=== PATIENT | female | born 1990 | race Caucasian/White ===

== ENCOUNTER 2018-04-07 13:16 | Day surgery (SDC) | payer OTHER, SELFPAY ==
[2018-04-06 09:29] VITALS: BMI 23.2
[2018-04-07 14:23] VITALS: BMI 23.2
[2018-04-07 14:42] VITALS: BP 124/69; PULSE 64; RESP 16; TEMP 36.6; O2SAT 99
--- NOTE | 2018-04-07 15:02 | SUR.PREOP ---
Due to wrap, surgical site not washed with chlorhexidine.
--- NOTE | 2018-04-07 15:21 | PM.PREOP ---
Pre-operative Note Interval Note Pre-op Check: History & Physical Reviewed by Physician H&P completed within 30 days and has changed as indicated here:: No changes.
[2018-04-07] MEDS: LACTATED RINGERS 1,000 ML 42 ML IV (15:45)
--- NOTE | 2018-04-07 15:48 | P.OP_ITS ---
Operative Date/Time/Diagnoses - Date of procedure: 04/07/18 Pre-op diagnosis: Left fifth metatarsal fracture Procedure & Clinicians Procedure: Left fifth metatarsal open reduction internal fixation Indications: Fracture with displacement left fifth metatarsal. Surgeon: Pilar Nixon Anesthesia Type: General Operative Notes Closure Type: primary Specimen(s): none sent Implants & Drains: Aurora Baby Gorilla 6 hole straight plate, with six 2.0 and 2.5 mm screws Applied: implant(s) and other (posterior splint) Estimated Blood Loss (mL): 20 Blood products transfused: none Tourniquet time (min): 90 Procedure in detail: Patient was brought to the operating room and placed on the operative table in the supine position after induction of general anesthesia and the tourniquet was placed about the left hip in the foot and ankle were prepped and draped the usual aseptic manner. The tourniquet was inflated and after checking anesthesia incision was made over the dorsal lateral aspect of the 5th metatarsal. The incision was deepened through subcutaneous tissues being careful to identify and retract all vital neural and vascular structures, all bleeders were cauterized and ligated necessary. The fracture fragments were immediately seen and there was some hematoma that was able to be gently evacuated. The fragments were gently manipulated to go back out to length and under fluoroscopy and a lobster clamp, a lag screw was placed across the distal lateral part to proximal medial aspect. The plate was then chosen and temporary fixation used. The lag screw was able to close this down well, although it did not appear to fully engage the distal cortex. It did however leg well and was very sturdy. The smaller fragment distally was rotating and it was determined that a 2nd lag screw was needed here. Under standard AO techniques a lag screw was placed. Finally the plate was placed and this was well contoured and in appropriate position. This was checked on fluoroscopy and noted to be in good alignment. The area was irrigated copious amounts normal sterile saline and the tourniquet was deflated , prompt hyperemic response was seen to the foot. Deep closure was performed using 3 0 Vicryl subcutaneous with 4 O Vicryl and the skin with 3 0 nylon. Dressing was placed consisting of Adaptic 4x4s soft roll and a well padded appropriately aligned posterior splint. She was transferred to the PACU with vital signs stable. Following a period of postoperative monitoring the patient be discharged home on written and oral postoperative instructions including keeping the dressing dry and intact, avoiding ambulation to the foot, icing and elevating the foot when seated home , DVT prevention techniques have been reviewed. Complications: none Plan for aftercare: D/c to home with written and verbal instructions given. Preoperatively she is given rx for [place] 5/325mg tabs and Lovenox 40mg prefilled syringe (#10). She is given safety instructions. She will start her daily lovenox injection tomorrow. NWB and has her post op appt already made. She will be in splint today and will transition to a postop boot when swelling and incision allow. First x-ray generally at s/p four weeks, earlier if concerns prior.
[2018-04-07] MEDS: CEFAZOLIN 1 GM/50 ML FROZ.PIGGY IV (16:25)
--- NOTE | 2018-04-07 16:52 | SUR.OPER ---
Supine on padded OR bed, head on pillow, arms secured on padded arm boards at <90 degrees abduction, legs uncrossed, safety belt at waist, tape over blanket over lower right leg. Left leg drapped free
[2018-04-07] MEDS: BUPIVACAINE 0.5% (PF) 30 ML VIAL INJ (17:03)
[2018-04-07 19:03] VITALS: BP 109/66; PULSE 84; RESP 11; TEMP 37.2; O2SAT 95
[2018-04-07 19:08] VITALS: BP 120/60; PULSE 75; RESP 11; O2SAT 94
[2018-04-07 19:13] VITALS: BP 108/71; PULSE 78; RESP 14; TEMP 36.9; O2SAT 94
[2018-04-07 19:18] VITALS: BP 111/74; PULSE 75; RESP 14; TEMP 37.3; O2SAT 94
[2018-04-07] MEDS: OXYCODONE/ACETAMINOPHEN 5/325 TABLET 1 TAB PO (19:41)
[2018-04-07 19:58] VITALS: BP 105/69; PULSE 67; RESP 15; TEMP 37.1; O2SAT 97
--- NOTE | 2018-04-07 20:10 | SUR.PHASEII ---
PT DC TO HOME IN STABLE CONDITION, VSS. PT ABLE TO MOVE TOES OF OPERATIVE FOOT. OPERATIVE FOOT WARM TO TOUCH, +PULSE, AND +SENSTATION. DRSG TO SURGICAL SITE C/D/I AT TIME OF DC. PT DRESSED SELF WITHOUT ANY DIFFICULTLY. PT DENIES ANY NAUSEA AND TOLERATING ORAL INTAKE WITHOUT ANY DIFFICULTLY.
== END 2018-04-07 20:05 | disposition home or self-care (01) ==
PROVIDERS: Visit Provider Podiatrist
PROC: (CPT 28485; principal; 2018-04-07 14:45)
DX: S92.352A Displaced fracture of fifth metatarsal bone, left foot, initial encounter for closed fracture (principal); W10.1XXA Fall (on)(from) sidewalk curb, initial encounter
CPT/HCPCS: 28485; J1100; J2250; J2405; J2704; J3010

== ENCOUNTER → 2018-08-08 10:06 | Outpatient (CLI) | payer OTHER, SELFPAY | PROVIDERS: Visit Provider Physician Assistant | DX: B99.9 Unspecified infectious disease (principal) | CPT/HCPCS: 87070; 87075; 87077; 87147; 87186; 87205 ==

== ENCOUNTER → 2018-08-18 14:39 | Outpatient (CLI) | payer OTHER, SELFPAY ==
--- NOTE | 2018-08-18 | DI.RAD.S_ITS ---
PROCEDURE: XR SHOULDER RT MIN 2V INDICATIONS: RT SHOULDER AND TRAPEZIUS PAIN TECHNIQUE: 3 views of the shoulder were acquired. COMPARISON: None. FINDINGS: Bones: No fractures or dislocations. No suspicious bony lesions. Visualized ribs appear intact. Soft tissues: No suspicious soft tissue calcifications. IMPRESSION: No fracture. No osseous lesion. If symptoms and/or clinical suspicion for pathology persists, further assessment with repeat radiographs (7-10 days) or advanced imaging (e.g. CT, MRI or bone scan) may be helpful. Dictated by: Jessica Cowart MD, PhD on 08/18/2018 at 15:27 Approved by: Jessica Cowart MD, PhD on 08/18/2018 at 15:27
--- NOTE | 2018-08-18 | DI.RAD.S_ITS ---
PROCEDURE: XR CERVICAL SPINE 2V OR 3V INDICATIONS: RT SHOULDER AND TRAPEZIUS PAIN TECHNIQUE: 3 view(s) of the cervical spine were acquired. COMPARISON: None. FINDINGS: Bones: No fractures or dislocations to the T2 level. The lateral masses of C1 appear intact on the odontoid view. No suspicious bony lesions. There is slight reversal of normal cervical spine curvature. Soft tissues: No prevertebral soft tissue swelling. Intervertebral disc heights are normally preserved at all levels. IMPRESSION: No osseous lesion. If symptoms and/or clinical suspicion for pathology persists, evaluation with MRI may be helpful for further assessment. Dictated by: Jessica Cowart MD, PhD on 08/18/2018 at 15:25 Approved by: Jessica Cowart MD, PhD on 08/18/2018 at 15:27
== END ==
PROVIDERS: PCP Nurse Practitioner Family; Visit Provider Nurse Practitioner Family
DX: M25.511 Pain in right shoulder (principal)
CPT/HCPCS: 72040; 73030

== ENCOUNTER 2021-01-20 11:00 | Emergency (ER) | payer OTHER, SELFPAY ==
[2021-01-20 11:03] VITALS: BP 138/87; PULSE 82; RESP 16; TEMP 36.8; O2SAT 98; BMI 24.7
--- NOTE | 2021-01-20 11:14 | DI.RAD.S_ITS ---
PROCEDURE: XR CHEST 2V INDICATIONS: SOB, chest pain TECHNIQUE: 2 views of the chest were acquired. COMPARISON: None. FINDINGS: Surgical changes and devices: None. Lungs and pleura: Lungs are clear. No pleural effusions or pneumothorax. Mediastinum: Mediastinal contours are normal. Heart size is normal. Bones and chest wall: No suspicious bony abnormalities. Soft tissues appear unremarkable. IMPRESSION: No acute cardiopulmonary pathology. Dictated by: Mynor Wray M.D. on 01/20/2021 at 11:55 Approved by: Mynor Wray M.D. on 01/20/2021 at 11:55
[2021-01-20 11:37] LABS: Add Manual Diff / Slide Review NO; Basophils Absolute Auto 100 /uL (0-100); Eosinophils Absolute Auto 600 /uL (0-450); Eosinophils Percent Auto 5.9 % (2-4); Hematocrit 42.3 % (36-46); Hemoglobin 14.5 g/dL (12.0-16.0); Lymphocytes Absolute Auto 2300 /uL (1100-4500); Lymphocytes Percent Auto 24.9 % (25-40); Mean Corpuscular HGB Conc 34.2 % (30-36); Mean Corpuscular Hemoglobin 31.4 PG (26-34); Mean Corpuscular Volume 91.7 fL (80-100); Monocytes Absolute Auto 600 /uL (0-900); Monocytes Percent Auto 6.4 % (3-14); Neutrophils Absolute Auto 5800 /uL (1500-7000); Neutrophils Percent Auto 61.8 % (50-75); Platelet Count 225 X10^3/uL (150-400); Red Blood Cell Count 4.61 X10^6/uL (4.0-5.2); Red Cell Distribution Width 12.7 % (11.6-14.8); White Blood Cell Count 9.4 X10^3/uL (4.5-11.0)
[2021-01-20 11:44] LABS: Creatine Kinase 57 U/L (30-135)
[2021-01-20 11:48] LABS: BUN Creatinine Ratio 19.7 (6-22); Blood Urea Nitrogen 14 mg/dL (7-17); Calcium 9.5 mg/dL (8.4-10.2); Carbon Dioxide 30 mmol/L (22-32); Chloride 101 mmol/L (98-107); Estimated Glomerular Filt Rate > 60.0 mL/min (>60); Glucose 96 mg/dL (70-100); HEMOLYSIS 27 (0-50); Potassium 4.3 mmol/L (3.4-5.1); Sodium 136 mmol/L (137-145)
[2021-01-20 11:49] LABS: C-Reactive Protein Quant < 0.5 mg/dL (<1.0)
[2021-01-20 11:56] LABS: Troponin I < 0.012 ng/mL (0.01-0.034)
--- NOTE | 2021-01-20 12:06 | ED_ITS ---
HPI - Back Pain/Injury General Chief Complaint: Back Pain/Injury Stated Complaint: severe back and chest pain on left side Time Seen by Provider: 01/20/21 11:03 Source: patient Mode of arrival: Ambulatory Limitations: no limitations History of Present Illness HPI Narrative: 30F nonsmoker withotu significant medical history presents with a chief complaint of left upper back sharp and stabbing pain that is worse with a deep breath and motion. She states that it feels like it radiates around to the left front of her chest. She states she has had episodes off and for the past few years but it has never lasted quite this long. She denies any injury or overuse with her left arm. She denies any numbness, tingling or weakness. She denies any shortness of breath, recent travel or history of blood clot. Her pa in at most intense with 7/10 and is currently 2 or 3. She denies nausea, vomiting or diarrhea. MD Complaint: back pain Onset (ago): hour(s) Duration: improved Similar Symptoms Previously: Yes Location: thoracic spine Severity: moderate Quality: sharp Radiation: none Exacerbating factors: movement Associated symptoms: denies other symptoms Related Data Home Medications Medication Instructions Recorded Confirmed sertraline 50 mg PO DAILY 04/07/18 08/08/18 levonorgestrel INTRAUTERINE each 07/31/18 08/08/18 Previous Rx's Medication Instructions Recorded cyclobenzaprine 10 mg PO TID PRN #14 tab 01/20/21 ketorolac 10 mg PO Q6H PRN #14 tab 01/20/21 Allergies Allergy/AdvReac Type Severity Reaction Status Date / Time No Known Drug Allergies Allergy Verified 08/08/18 09:41 Review of Systems Constitutional Constitutional: Denies chills, Denies fatigue, Denies fever(s), Denies frequent falls, Denies lethargy and Denies weakness Eyes Eyes: Denies change in vision, Denies eye discharge, Denies irritation and Denies loss of vision ENT Ears, Nose, Mouth, and Throat: Denies change in voice, Denies dizziness, Denies neck pain, Denies sore throat and Denies throat swelling Cardiovascular Cardiovascular: Reports chest pain, Denies irregular heart rhythm, Denies lightheadedness, Denies palpitations, Denies dyspnea, Denies dyspnea on exertion and Denies orthopnea Respiratory Respiratory: Denies cough, Denies dyspnea, Denies dyspnea on exertion and Denies wheezing Gastrointestinal Gastrointestinal: Denies abdominal pain, Denies change in bowel habits, Denies diarrhea, Denies nausea and Denies vomiting Musculoskeletal Musculoskeletal: Reports back pain, Denies neck pain and Denies numbness Integumentary/Breasts Skin/Breast: Denies pruritus, Denies erythema, Denies rash and Denies wounds Neurologic Neurologic: Denies behavioral changes, Denies confusion, Denies dizziness, Denies frequent falls, Denies loss of vision, Denies numbness and Denies weakne ss Psychiatric Psychiatric: Denies anxiety, Denies behavioral changes, Denies confusion, Denies depression, Denies homicidal ideation and Denies suicidal ideation Endocrine Endocrine: Denies fatigue, Denies flushing and Denies palpitations Hematologic/Lymphatic Hematologic/Lymphatic: Denies easy bruising Allergic/Immunologic Allergic/Immunologic: Denies urticaria, Denies throat swelling and Denies wheezing Patient History Medical History Anxiety Social History household members: significant other Smoking Status: Never smoker Smoking Status: Never smoker alcohol intake frequency: holidays/special occasions only Exam Narrative Exam Narrative: GENERAL: [30] year old patient appears stated age. Well- nourished, well-developed patient, in mild distress. HEAD: Atraumatic. Normocephalic. EYES: Pupils equal round and reactive. Extraocular motions intact. No scleral icterus. No injection or drainage. ENT: Nose without bleeding, purulent drainage. Throat without erythema, ton sillar hypertrophy or exudate. Airway patent. NECK: Trachea midline. Non tender CARDIOVASCULAR: Regular rate and rhythm without murmurs, gallops, or rubs. RESPIRATORY: Clear to auscultation. Breath sounds equal bilaterally. No wheezes, rales, or rhonchi. GASTROINTESTINAL: Abdomen soft, non-tender, nondistended. EXTREMITIES: No edema or joint tenderness. BACK: Tender to palpation in left sided thoracic paraspinal musculature just inferior and medial to scapula. NEURO: AOx3. SKIN: No rash or erythema of visible areas Initial Vital Signs Initial Vital Signs: Vital Signs Temperature 98.2 F 01/20/21 11:03 Pulse Rate 82 01/20/21 11:03 Respiratory Rate 16 01/20/21 11:03 Blood Pressure 138/87 01/20/21 11:03 Pulse Oximetry 98 01/20/21 11:03 Course Orders Ordered: Discontinued Medications Sodium Chloride (Normal Saline 0.9%) 1,000 mls @ 1,000 mls/hr IV BOLUS ONE Stop: 01/20/21 12:12 Last Infusion: 01/20/21 14:09 Dose: 0 mls/hr Documented by: Admin: 01/20/21 13:31 Dose: 1,000 mls/hr Documented by: MALLORY Vital Signs Vital signs: Vital Signs - 8 hr 01/20/21 11:03 Temperature 98.2 F Pulse Rate 82 Respiratory Rate 16 Blood Pressure 138/87 Pulse Oximetry 98 MDM - Back Pain/Injury Lab Data Result diagrams: 01/20/21 11:19 01/20/21 11:19 Labs: Lab Results 01/20/21 01/20/21 01/20/21 Range/Units 11:19 11:19 11:19 WBC 9.4 (4.5-11.0) X10^3/uL RBC 4.61 (4.0-5.2) X10^6/uL Hgb 14.5 (12.0-16.0) g/dL Hct 42.3 (36-46) % MCV 91.7 (80-100) fL MCH 31.4 (26-34) PG MCHC 34.2 (30-36) % RDW 12.7 (11.6-14.8) % Plt Count 225 (150-400) X10^3/uL Neut % (Auto) 61.8 (50-75) % Lymph % (Auto) 24.9 L (25-40) % [place] % (Auto) 6.4 (3-14) % Eos % (Auto) 5.9 H (2-4) % Baso % (Auto) 1.0 (0-2) % Neut # (Auto) 5800 (7271-1542) /uL Lymph # (Auto) 2300 (5273-1462) /uL Hudson # (Auto) 600 (0-900) /uL Eos # (Auto) 600 H (0-450) /uL Baso # (Auto) 100 (0-100) /uL ESR 4 (0-20) MM/HR D-Dimer 433 H (<230) ng/mL Sodium 136 L (137-145) mmol/L Potassium 4.3 (3.4-5.1) mmol/L Chloride 101 (98-107) mmol/L Carbon Dioxide 30 (22-32) mmol/L BUN 14 (7-17) mg/dL Creatinine 0.71 (0.52-1.04) mg/dL Estimated GFR > 60.0 (>60) mL/min BUN/Creatinine Ratio 19.7 (6-22) Glucose 96 (70-100) mg/dL Calcium 9.5 (8.4-10.2) mg/dL Total Creatine Kinase (30-135) U/L CK-MB (CK-2) CK-MB (CK-2) Rel Index Troponin I (0.01-0.034) ng/mL C-Reactive Protein < 0.5 (<1.0) mg/dL 01/20/21 Range/Units 11:19 WBC (4.5-11.0) X10^3/uL RBC (4.0-5.2) X10^6/uL Hgb (12.0-16.0) g/dL Hct (36-46) % MCV (80-100) fL MCH (26-34) PG MCHC (30-36) % RDW (11.6-14.8) % Plt Count (150-400) X10^3/uL Neut % (Auto) (50-75) % Lymph % (Auto) (25-40) % Hudson % (Auto) (3-14) % Eos % (Auto) (2-4) % Baso % (Auto) (0-2) % Neut # (Auto) (3306-6455) /uL Lymph # (Auto) (5648-7304) /uL Hudson # (Auto) (0-900) /uL Eos # (Auto) (0-450) /uL Baso # (Auto) (0-100) /uL ESR (0-20) MM/HR D-Dimer (<230) ng/mL Sodium (137-145) mmol/L Potassium (3.4-5.1) mmol/L Chloride (98-107) mmol/L Carbon Dioxide (22-32) mmol/L BUN (7-17) mg/dL Creatinine (0.52-1.04) mg/dL Estimated GFR (>60) mL/min BUN/Creatinine Ratio (6-22) Glucose (70-100) mg/dL Calcium (8.4-10.2) mg/dL Total Creatine Kinase 57 (30-135) U/L CK-MB (CK-2) TNP CK-MB (CK-2) Rel Index TNP Troponin I < 0.012 (0.01-0.034) ng/mL C-Reactive Protein (<1.0) mg/dL Point of Care Testing Test Results Negative Urine Dip Bedside Urine Glucose Negative Bedside Urine Bilirubin - Negative Bedside Urine Ketone - Negative Urine Specific [place] 1.020 Bedside Urine Occult Blood - Negative Bedside Urine pH 7.0 Bedside Urine Protein - Negative Bedside Urine Urobilinogen - Negative Bedside Urine Nitrite - Negative Bedside Urine Leukocytes - Negative Esterase Imaging Data Chest x-ray: Radiologist's Impression: [address] [id number] ReportSigned Patient: Jacki Subramanian MMR#: [id number]: [id number]:[id number]/Sex: 30 / FDate of Service: 01/20/21Loc: EDAccession Number: [id number] Procedure: XR chest 2V Ordering Provider: Ion Quiñones D.O. PROCEDURE: XR CHEST 2V INDICATIONS: SOB, chest pain TECHNIQUE: 2 views of the chest were acquired. COMPARISON: None. FINDINGS: Surgical changes and devices: None. Lungs and pleura: Lungs are clear. No pleural effusions or pneumothorax. Mediastinum: Mediastinal contours are normal. Heart size is normal. Bones and chest wall: No suspicious bony abnormalities. Soft tissues appear unremarkable. IMPRESSION: No acute cardiopulmonary pathology. Dictated by: Mynor Wray M.D. on 01/20/2021 at 11:55 Approved by: Mynor Wray M.D. on 01/20/2021 at 11:55 Discharge Plan Departure Patient Disposition: Home Clinical Impression: Atypical chest pain Acute thoracic myofascial strain Qualifiers: Encounter type: initial encounter Qualified Code(s): S29.019A - Strain of muscle and tendon of unspecified wall of thorax, initial encounter Instructions: DI for Atypical Chest Pain, DI for Muscle Strain Activity Restrictions/Additional Instructions: *You have been diagnosed with [atypical chest pain / thoracic strain. NO evidence of heart attack or blood clot ] *What to do: *Take medications as directed: Prescription sent to [facility] *Follow up with your primary care provider in 2-3 days, call for an appointment. Let them know you were seen in the Emergency Department and that we ask that you be seen in follow up *Return to ER if you should have any new, worsening or concerning symptoms Prescriptions: New cyclobenzaprine 10 mg tablet 10 mg PO TID PRN (Reason: muscle spasm) Qty: 14 RF: 0 ketorolac 10 mg tablet 10 mg PO Q6H PRN (Reason: pain) Qty: 14 RF: 0 No Action levonorgestrel [Kyleena] 17.5 mcg/24 hr (5 years) intrauterine device Intrauterine RF: 0 sertraline 50 mg PO DAILY RF: 0 Referrals: Elisha Abel ARNP [Primary Care Provider] -
[2021-01-20 12:31] LABS: D Dimer 433 ng/mL (<230)
[2021-01-20 12:36] VITALS: BP 127/88; PULSE 69; O2SAT 100
[2021-01-20 12:37] VITALS: BP 127/88; PULSE 61; RESP 18; O2SAT 99
[2021-01-20 13:00] VITALS: BP 127/78; PULSE 71; O2SAT 100
[2021-01-20 13:03] LABS: Erythrocyte Sedimentation Rate 4 MM/HR (0-20)
--- NOTE | 2021-01-20 13:22 | DI.CT.S_ITS ---
PROCEDURE: CT ANGIO CHEST PE PROTOCOL INDICATIONS: chest pain, elevated Dimer TECHNIQUE: After the administration of intravenous contrast, 2 mm thick sections acquired from the pulmonary apices to the posterior costophrenic angles. 3-dimensional maximum intensity projection (MIP) coronal and sagittal reformats were then acquired through the thorax. For radiation dose reduction, the following was used: automated exposure control, adjustment of mA and/or kV according to patient size. COMPARISON: None. FINDINGS: Image quality: Excellent. Pulmonary arteries: Pulmonary arteries are normal in size, and demonstrate no intraluminal filling defects to suggest central pulmonary embolism. Lungs and pleura: Lungs are clear. No pleural effusions or pneumothorax. Central and peripheral airways are patent. Mediastinum: Heart size is normal, without pericardial effusion. No mediastinal or hilar adenopathy. Thoracic aorta is normal in caliber and enhancement. Esophagus is normal in caliber, without hiatal hernia. Bones and chest wall: No suspicious bony lesions. Ribs and thoracic spine appear intact throughout. Thyroid gland is normal. No axillary or supraclavicular adenopathy. Abdomen: Visualized upper abdominal solid organs appear normal in the early arterial phase of enhancement. There is a small hiatal hernia. IMPRESSION: 1. No pulmonary embolism. 2. No acute abnormality of the chest. 3. Small hiatal hernia. Dictated by: Vikash Saldana M.D. on 01/20/2021 at 13:32 Approved by: Vikash Saldana M.D. on 01/20/2021 at 13:35
[2021-01-20 13:30] VITALS: BP 136/83; O2SAT 99
[2021-01-20] MEDS: SODIUM CHLORIDE 0.9% 1,000 ML 1000 ML IV (13:31)
[2021-01-20 14:10] VITALS: BP 133/74; PULSE 80; RESP 16; O2SAT 97
== END 2021-01-20 14:09 | disposition home or self-care (01) ==
PROVIDERS: Emergency Provider Emergency Medicine; PCP Internal Medicine
DX: R07.89 Other chest pain (principal); S29.019A Strain of muscle and tendon of unspecified wall of thorax, initial encounter
CPT/HCPCS: 71046; 71275; 80048; 81003; 81025; 82550; 84484; 85025; 85379; 85651; 86140; 93005; 96360; 99284

== ENCOUNTER → 2024-06-13 11:20 | Outpatient (CLI) | payer OTHER, SELFPAY ==
--- NOTE | 2024-06-13 11:22 | DI.US.S_ITS ---
PROCEDURE: US OB LIMITED INDICATIONS: GROWTH OUTSIDE/PRIOR DATING DATA: Last menstrual period (LMP): 10/20/2023. LMP-based estimated date of delivery (FRANCI): 07/26/2024. First dating scan (date and location): Not. Estimated date of delivery (FRANCI) from first dating scan: Not applicable. The calculations are made using the working FRANCI of 07/26/2024. TECHNIQUE: Real-time scanning was performed of the fetus, with image documentation. Endovaginal scanning: No COMPARISON: None. FINDINGS: A single living intrauterine gestation is present. Presentation: Hemanth breech. Placenta: Placental position is left, without previa. Amniotic fluid index: 10.5 cm, normal range is 5-24 cm. Single deepest vertical pocket is 5.3 cm. heart rate: 136 beats per minute. Maternal cervical canal: Not well seen BPD: 8.2 cm, 33 week 1 day. HC: 31.7 cm, 35 week 4 day AC: 31.0 cm, 35 week 0 day FL: 16.5 cm, 33 week 3 day EGA by current ultrasound: 34 week 2 day EGA by dates: 33 week 6 day EFW: 2422 g, 60 percentile All anatomy is visualized and within normal limits. IMPRESSION: Single live intrauterine consistent with 34 week 2 day gestation. Normal anatomic survey Approved by: Akhil Steele M.D. on 06/13/2024 at 18:22
== END ==
PROVIDERS: Referring Provider Obstetrics & Gynecology; Visit Provider Obstetrics & Gynecology
DX: O24.419 Gestational diabetes mellitus in pregnancy, unspecified control (principal); Z3A.34 34 weeks gestation of pregnancy
CPT/HCPCS: 76815

== ENCOUNTER → 2024-06-30 08:09 | Outpatient (CLI) | payer OTHER, SELFPAY ==
--- NOTE | 2024-06-30 08:54 | DIAB.GDA ---
Initial Gestational Diabetes Assessment Name: Jacki Subramanian Date: 06/30/24 Time: 991-977d Dx: Gestational Diabetes Provider: Saad FRANCI: 07/26/24 Weeks: 36 Jacki presents for initial GDM visit. Endorses maternal FH of T2Dm. Has questions today about nutrition, food safety during , how GDM can impact mom/baby, and risk of T2DM . States she was counting every carb, even in non starch veggies. [place]. Diet Recall: 830-10a: eggs, veggies 1-2 slices ww bread OR fast food egg sandwich with extra protein 12-1p: yogurt, nuts, honey, fruit, and pro shake 4p: nuts or yogurt or pro shake 630-8p: salad with fruit OR fajitas with low CHO wrap OR pizza and salad 9p: half ice cream bar Anthropometrics: Ht: 66 Wt: 184# 06/13/24 OB visit Prepregnancy wt: 150# Physical Activity: No program. More movement lately with moving into home. Self-Monitoring Blood Glucose: Jacki is checking FBG and 1 hour. All FBG buy one in goal this week since starting NPH. Most postprandial <140 mg/dl with exception of 2 elevations. Did have one low this morning of 67 mg/dl. No symptoms. If FBG continue to be under 70 mg/dl, may consider reducing to 8u NPH. Date Pre Post Pre Post Pre Post HS 06/24 87 139 164 8/11 91 123 128 140 8/12 95 119 121 138 8/13 89 95 120 126 8/14 102 122 151 129 8/15 87 112 2 hr 06/30 67 Diabetes Medications: 10u NPH Pertinent Labs: Late transfer of care. No labs available. Nutrition Rx: Carbohydrates: Meal: 45-g lunch and dinner; 30g breakfast Snack: 15-30g Nutrition Diagnosis: Altered nutrition related lab value r/t GDM dx aeb recent referral and pt report Nutrition and food related knowledge deficit r/t new diagnosis GDM aeb pt report, recent BG readings Intervention: This participant was very receptive. Provided appropriate educational handouts. Discussed the following topics: GDM pathophysiology and impact of hyperglycemia on mom and baby Risk for T2DM for mom and baby in the future Ways to reduce risk T2DM Plate Method, meal timing, carb counting, pairing macronutrients and spreading out CHO for better BG management Blood glucose goals (FBG: <95 and 1 hour <140 mg/dL or 2 hour <120mg/dl); importance of checking 4x per day (FBG and pc) Impact of macronutrients on blood glucose Food safety during Recommended servings for carbohydrates at meals and snacks CGM sample Reviewed CGM use and equipment Discussed when to check blood sugars using finger stick Reviewed high and low blood sugar signs/symptoms and treatment options Provided education for self-administration of CGM placement Educated patient on alarm settings Discussed when to replace equipment and disposal Role of physical activity and following provider guidelines for safety Goals: Aim for nutrition rx at meals/snacks If FBG continue under 70mg/dl, reduce NPH to 8u Wear CGM sample and corn picker CGM rx Follow-up: ADDIE MADISON follow-up in one week Nisha Hess RDN, [place] Certified Diabetes Care and Aircraft Instrument Engineer T: [phone] F: [phone] [email or web address] Thank you for this referral
== END ==
PROVIDERS: Referring Provider Obstetrics & Gynecology
DX: O24.414 Gestational diabetes mellitus in pregnancy, insulin controlled (principal); Z3A.36 36 weeks gestation of pregnancy; Z71.3 Dietary counseling and surveillance
CPT/HCPCS: 97802

== ENCOUNTER → 2024-06-30 09:24 | Outpatient (CLI) | payer OTHER, SELFPAY ==
[2024-07-01 13:39] LABS: Strep Grp B PCR NEG for Grp B Strep
== END ==
PROVIDERS: Referring Provider Obstetrics & Gynecology; Visit Provider Obstetrics & Gynecology
DX: Z34.83 Encounter for supervision of other normal pregnancy, third trimester (principal); Z3A.36 36 weeks gestation of pregnancy
CPT/HCPCS: 87653

== ENCOUNTER 2024-06-30 12:25 | Observation (INO) | payer OTHER, SELFPAY | END 2024-06-30 13:12 | disposition home or self-care (01) | PROVIDERS: Admitting Provider Obstetrics & Gynecology; Referring Provider Obstetrics & Gynecology; Visit Provider Obstetrics & Gynecology | DX: O47.03 False labor before 37 completed weeks of gestation, third trimester (principal); Z3A.36 36 weeks gestation of pregnancy | CPT/HCPCS: 87653; 97802; G0378; G0379 ==

== ENCOUNTER 2024-07-03 09:16 | Observation (INO) | payer OTHER, SELFPAY | END 2024-07-03 09:58 | disposition home or self-care (01) | PROVIDERS: Admitting Provider Obstetrics & Gynecology; Referring Provider Obstetrics & Gynecology; Visit Provider Obstetrics & Gynecology | DX: O24.414 Gestational diabetes mellitus in pregnancy, insulin controlled (principal); O47.03 False labor before 37 completed weeks of gestation, third trimester; Z3A.36 36 weeks gestation of pregnancy | CPT/HCPCS: 59025; G0378; G0379 ==

== ENCOUNTER → 2024-07-07 09:12 | Outpatient (CLI) | payer OTHER, SELFPAY ==
--- NOTE | 2024-07-07 09:16 | DIAB.GDFU ---
Follow-up Gestational Diabetes Assessment Name: Jacki Subramanian Date: 07/07/24 Time: 915-10a Dx: Gestational Diabetes Provider: Saad FRANCI: 07/26/24 Weeks: 37 Jacki presents for GDM visit. Some issues with sensor placement and coming off. Encouraged her to call Dexcom for replacement prn. Reports reduced veggie intake and increased eating out since moving and not having kitchen equipment. Also preference to eat out. Now that she has her kitchen equipment, anticipates eating at home more often. Has been recording food intake in CGM caridad. We reviewed this today. Often pairing CHO and pro. Some meals/snacks high in CHO, ie fruit with crackers and cheese OR sandwich with latte with honey. Also endorses some stress recently with moving. Noticed slight increase in FBG over last few days. She is unclear on how to titrated insulin when needed. Noticed when going long periods of time without eating, will then eat large portions and results in elevated readings. Plans to breastfeed. Notes mother's experience of difficulty with adequate milk supply. Reports baby percentile reduced from 80th percentile to 60th. Per US notes, normal AFV. Anthropometrics: Ht: 66 Wt: 184# 06/13/24 OB visit Prepregnancy wt: 150# Physical Activity: No program. More movement lately with moving into home. Self-Monitoring Blood Glucose: Wearing CGm. Received personal CGM. TIR adequate, though often having highs of 140-160mg/dl after 1-3 meals each day. FBG often <95mg/dl with occasional elevations lately r/t reported stress. States most mornings waking <95 mg/dl and CGM consistent with this. TIR: 0% very high 9% >140mg/dl 90% in range 1% low 0% very low av mg/dl std dev: 22 mg/dl GMI: 5.8% variability: 20.4% Diabetes Medications: 10u NPH Pertinent Labs: Late transfer of care. No labs available. Nutrition Rx: Carbohydrates: Meal: 45-g lunch and dinner; 30g breakfast Snack: 15-30g Nutrition Diagnosis: Altered nutrition related lab value r/t GDM dx aeb recent referral and pt report Nutrition and food related knowledge deficit r/t new diagnosis GDM aeb pt report, recent BG readings Excessive CHO intake r/t eating out occurrences and waiting long periods to eat resulting in excessive hunger aeb pt report, CGM reports, and food journal- new Intervention: This participant was very receptive. Provided appropriate educational handouts. Discussed the following topics: Carb portions and pairing postprandial elevations and strategies to reduce Troubleshooting CGM placement issues Medication management: increase NPH if 2 days in a row >95mg/dl by 1-2u Role of physical activity postprandial Recent blood sugar results and impact of food and hormones Review of macronutrient recommendations during Benefits, resources, and nutrition for recommendations for nutrition and physical activity recommendations for T2DM risk reduction OGTT at 6-12 weeks Checking blood sugars twice per week (goal: fasting <100 mg/dL and 2 hour pc <140 mg/dL) until 6 week check-up HgA1c q 1-3 years. Goals: Aim for nutrition rx at meals/snacks- in progress If FBG continue under 70mg/dl, reduce NPH to 8u- d/c Wear CGM sample and case picker CGM rx - met Start cooking at home - new Increase veggie intake- new Eat q 3-4 hours to reduce excessive hunger- new Call Dexcom about sensor - new Follow-up: ADDIE MADISON follow-up prn. Encouraged her to continue f/u with OB provider. If postprandial readings continue to be elevated, may need medication intervention. Anticipate with diet changes those numbers will come down in range. Encouraged her to call or message DIANNE/LOS prn for questions or follow-up needs. She agreed. Nisha Hess RDN, LOS Certified Diabetes Care and Bilingual Patient Support Caseworker T: [phone] F: [phone] [email or web address] Thank you for this referral
== END ==
LOC: DIET 09:13
PROVIDERS: Referring Provider Obstetrics & Gynecology
DX: O24.414 Gestational diabetes mellitus in pregnancy, insulin controlled (principal); Z3A.37 37 weeks gestation of pregnancy; Z71.3 Dietary counseling and surveillance
CPT/HCPCS: 97803

== ENCOUNTER 2024-07-07 12:09 | Outpatient (CLI) | payer OTHER, SELFPAY | END 2024-07-07 12:56 | disposition home or self-care (01) | LOC: LABOR 12:12 → OB 07-11 06:16 | PROVIDERS: Referring Provider Obstetrics & Gynecology; Visit Provider Obstetrics & Gynecology | DX: O36.8130 Decreased fetal movements, third trimester, not applicable or unspecified (principal); Z3A.37 37 weeks gestation of pregnancy | CPT/HCPCS: 59025; 97803; G0378; G0379 ==

== ENCOUNTER 2024-07-10 05:53 | Observation (INO) | payer OTHER, SELFPAY ==
[2024-07-10 06:51] LABS: Hematocrit 35.6 % (36-46)
--- NOTE | 2024-07-10 07:00 | PM.OBHP.1 ---
OB HPI Date/Time Date of admission: 07/10/24 Date Patient Seen: 07/10/24 Time Patient Seen: 06:40 History of Present Condition Chief complaint: inversion ECV : 1 Estimated Gestational Age (weeks): 37w5d Narrative: Jacki Subramanian is a 34 year old female G1 at 37w5d by early OSH US who presents to L&D for scheduled external cephalic version. course has been complicated by late transfer of care, A2GDM currently well managed on 10u NPH QHS, most recent growth scan at 34wga with EFW 60th%. At time of last office encounter (07/07) persistent malpresentation noted transverse/oblique with head to maternal R and BLE extended in pike position. Pt states she feels like there was some kind of large movement over the weekend while she was doing 'spinning babies' stretches but still feels like baby isn't quite in the right place. Indications Other reason(s) for admission: External cephalic version History of Present care: good care Ultrasounds: normal 1st trimester US Preadmission Labs Blood type: O (+) positive -: Antibody screen: negative, Cystic fibrosis screen: unknown, GBS status: negative, HBsAG: negative, HIV: negative and RPR/VDLR: negative -: Chlamydia screen: not detected and Gonorrhea screen: not detected HCT: 35.6 HCAB: negative PAP: Normal Integrated screen: low risk Quad screen: Normal 1 hr GTT: 164 3 hr GTT: 1 hr (205), 2 hr (177) and 3 hr (65) Fasting blood glucose: 95 Evaluation Evaluation Baseline heart rate: 155 Variability: Moderate (11-25) monitor accelerations: Present Monitor Decelerations: Absent Comments: bedside transabdominal US: han breech, head in maternal LUQ noted L lateral placenta with some calcifications MVP 5cm [facility] Medical History (Updated 06/30/24 @ 13:25 by Magalie Nash MD) Maternal excessive weight gain Insulin controlled gestational diabetes mellitus during Thyroid dysfunction Anxiety Surgical History (Updated 06/12/24 @ 08:14 by Cristel Casillas, SUZAN) [place] teeth extracted History of foot surgery (~2018) Family History (Updated 06/12/24 @ 08:17 by Cristel Casillas, SUZAN) Mother Hypothyroidism Pre-diabetes Grandmother Diabetes mellitus Father Spinal stenosis Recovering alcoholic Grandfather Heart disease Sister Gilbert's disease Brother Bipolar disorder Social History marital status: number of children: 0 household members: significant other lives independently: Yes caregiver/support person: No housing: house pets and animals: Yes (cats; aware of precautions) education level: college (bachelor's degree) occupational status: employed (works from home) current occupational exposures/hazards: No kareem/orthodox: [employer] special kareem needs: No travel history: recent (domestic only) seatbelt use: always helmet use: Yes (mixed; not with bicycle; counseled on this) water heater temp set < 120 deg: Yes working smoke detector in home: Yes fire extinguisher in home: Yes carbon monox detector in home: Yes firearms in home: No do you feel safe at home: Yes Smoking Status: Never smoker second hand exposure: No alcohol intake: former (~1-3 drinks on weekends when not ) substance use type: marijuana (edibles; not while /) during the past year weight has: remained stable (prior to ) well-balanced diet: daily or most days daily servings fruits/ve or more times/day caffeine: Yes (occasional decaf coffee; mostly stopped w/ ) Type(s) of exercise: walking Meds Home Medications and Allergies Home Medications Medication Instructions Recorded Confirmed Type calcium carbonate (Tums) 200 mg PO TID PRN 06/12/24 07/07/24 History famotidine 20 mg tablet 20 mg PO DAILY 06/12/24 07/07/24 History polyethylene glycol 3350 17 gram 17 g PO DAILY PRN 06/12/24 07/07/24 History oral powder packet (Miralax) vitamin-ferrous sulfate tab PO 06/12/24 07/07/24 History 27 mg iron-folic acid 0.8 mg tablet insulin NPH isoph U-100 human 100 10 unit (0.1 mL) SUBCUT QPM #15 mL 06/16/24 07/07/24 Rx unit/mL (3 mL) subcutaneous pen (Humulin N NPH U-100 Insulin KwikPen) pen needle, diabetic 31 gauge x #100 ea 06/21/24 07/07/24 Rx 1/4 (Comfort EZ Pen [place]) blood-glucose sensor (Dexcom G7 #3 ea 06/30/24 07/07/24 Rx Sensor device) Allergies Allergy/AdvReac Type Severity Reaction Status Date / Time No Known Drug Allergies Allergy Verified 07/07/24 11:21 Review of Systems Review of Systems ROS: Yes All systems reviewed with the patient and are negative except as otherwise documented OB Exam Vital signs Blood Pressure: 108/73 Pulse Rate: 73 Respiratory Rate: 17 Temperature: 98.6 F HENMT Head: normal to inspection Eyes General: appearance normal, both eyes and all related structures Resp Effort & Inspection: normal respiratory effort Cardio Rate: regular rate Extremities Lower extremity: Yes normal to inspection and edema (+1) Laterality: bilateral GI Inspection: normal to inspection Other: gravid, ga breech head to maternal LUQ Other: deferred Objective Labs 07/10/24 06:36 Labs: Laboratory Results - last 24 hr 07/10/24 06:36 Hgb 12.0 Hct 35.6 L Assessment and Plan Assessment and Plan Assessment and Plan narrative: 34yo G1 at 37w5d by early OSH dating presents for scheduled external cephalic version in setting of persistent malpresentation at term ECV Patient counseled regarding risks, benefits and alternatives to procedure. We specifically reviewed potential for intolerance to procedure wherein immediate urgent section would be indicated for delivery. We also reviewed potential placental injury, iatrogenic labor, PROM as well as persistent malpresentation. Patient and partner verbalize understanding and desire to proceed with trial of ECV to prevent the primary section. T&S, h/h on admission, IV access obtained Cat 1 tracing, maternal VSS/afebrile 0.25mg terbutaline SQ, hold for MD at bedside Patient is consented for external cephalic version, section in congregation of intolerance to procedure, transfusion of blood products as medically indicated dispo: pending clinical course Time-Based Coding :: [20] spent with patient and on the chart (including review of chart, obtaining history, exam, reviewing outside data, placing orders, documenting exam and treatment plan, and counseling patient) on [07/10/24].
[2024-07-10 07:20] VITALS: BP 108/73; PULSE 73; RESP 17; TEMP 37
[2024-07-10] MEDS: TERBUTALINE 1 MG/ML VIAL 0.25 MG SUBCUT (07:29)
[2024-07-10] MEDS: MINERAL OIL 30 ML UDC TOP (07:30)
== END 2024-07-10 09:56 | disposition home or self-care (01) ==
PROVIDERS: Admitting Provider Obstetrics & Gynecology; Referring Provider Obstetrics & Gynecology; Visit Provider Obstetrics & Gynecology
DX: O32.9XX1 Maternal care for malpresentation of fetus, unspecified, fetus 1 (principal); Z3A.37 37 weeks gestation of pregnancy
CPT/HCPCS: 36415; 59025; 59050; 59412; 76815; 85014; 85018; 86850; 86900; 86901; 96372; G0378; A9270; G0379

== ENCOUNTER 2024-07-14 09:10 | Outpatient (CLI) | payer OTHER, SELFPAY | END 2024-07-14 10:02 | disposition home or self-care (01) | LOC: LABOR 09:30 → OB 07-18 07:24 | PROVIDERS: Referring Provider Obstetrics & Gynecology; Visit Provider Obstetrics & Gynecology | DX: O24.414 Gestational diabetes mellitus in pregnancy, insulin controlled (principal); Z3A.38 38 weeks gestation of pregnancy | CPT/HCPCS: 59025; G0378; G0379 ==

== ENCOUNTER 2024-07-17 09:05 | Outpatient (CLI) | payer OTHER, SELFPAY | END 2024-07-17 10:00 | disposition home or self-care (01) | LOC: LABOR 09:07 → OB 07-24 06:33 | PROVIDERS: Referring Provider Obstetrics & Gynecology; Visit Provider Obstetrics & Gynecology | DX: O24.414 Gestational diabetes mellitus in pregnancy, insulin controlled (principal); Z3A.38 38 weeks gestation of pregnancy | CPT/HCPCS: 59025; G0378; G0379 ==

== ENCOUNTER 2024-07-19 10:33 | Inpatient (IN) | payer OTHER, SELFPAY ==
[2024-07-19 11:25] LABS: Add Manual Diff / Slide Review NO; Basophils Absolute Auto 100 /uL (0-100); Basophils Percent Auto 0.9 % (0-2); Eosinophils Absolute Auto 100 /uL (0-450); Eosinophils Percent Auto 1.1 % (2-4); Hematocrit 35.3 % (36-46); Lymphocytes Absolute Auto 1800 /uL (1100-4500); Lymphocytes Percent Auto 17.6 % (25-40); Mean Corpuscular Hemoglobin 29.5 PG (26-34); Monocytes Absolute Auto 900 /uL (0-900); Monocytes Percent Auto 8.4 % (3-14); Neutrophils Absolute Auto 7500 /uL (1500-7000); Platelet Count 180 X10^3/uL (150-400); Red Blood Cell Count 4.06 X10^6/uL (4.0-5.2); Red Cell Distribution Width 13.7 % (11.6-14.8); White Blood Cell Count 10.4 X10^3/uL (4.5-11.0)
--- NOTE | 2024-07-19 11:25 | PM.OBHP.1 ---
OB HPI Date/Time Date of admission: 07/19/24 Date Patient Seen: 07/19/24 Time Patient Seen: 11:25 History of Present Condition Chief complaint: malpresentation (breech), primary CS : 1 Estimated Date of Delivery: 07/26/24 Estimated Gestational Age (weeks): 39w0d Narrative: Jacki Subramanian is a 34 year old female G1 at 39w0d d=9wk OSH US who presents for scheduled primary section in setting of persistent malpresentation (han breech) s/p unsuccessful ECV. Patient presents today accompanied by her spouse, Song. course c/b A2GDM (10u NPH QHS) with excellent glycemic control, late transfer of care at 34wga to [facility] secondary to move. +FM, denies VB, LOF, dysuria, ctx. Indications Operative indications ( section): breech presentation History of Present care: good care Dating criteria: LMP confirmed by 1st trimester US Ultrasounds: normal 1st trimester US and normal mid trimester US Obstetrical complications: gestational diabetes (A2, 10u NPH QHS ) Medical complications: none Preadmission Labs Blood type: O (+) positive -: Antibody screen: negative, Cystic fibrosis screen: unknown, GBS status: negative, HBsAG: negative, HIV: negative, HSV 1: unknown, HSV 2: unknown and RPR/VDLR: negative -: Chlamydia screen: not detected and Gonorrhea screen: not detected -: Rubella: immune HCT: 35.3 HCAB: negative PAP: Normal Sequential screen: wnl Quad screen: Normal Urine: neg 1 hr GTT: 164 3 hr GTT: 1 hr (205), 2 hr (177) and 3 hr (65) Fasting blood glucose: 96 Evaluation Evaluation Baseline heart rate: 135 Variability: Moderate (11-25) monitor accelerations: Present Monitor Decelerations: Absent Category of Tracing: Reactive Status: Category l PFSH Medical History (Updated 07/20/24 @ 09:54 by Allyson Fleming DO) Maternal excessive weight gain Insulin controlled gestational diabetes mellitus during Thyroid dysfunction Anxiety Surgical History (Updated 06/12/24 @ 08:14 by Cristel Casillas, SUZAN) [place] teeth extracted History of foot surgery (~2018) Family History (Updated 07/29/24 @ 08:17 by Cristel Casillas RN) Mother Hypothyroidism Pre-diabetes Grandmother Diabetes mellitus Father Spinal stenosis Recovering alcoholic Grandfather Heart disease Sister Gilbert's disease Brother Bipolar disorder Social History marital status: number of children: 0 household members: significant other lives independently: Yes caregiver/support person: No housing: house pets and animals: Yes (cats; aware of precautions) education level: college (bachelor's degree) occupational status: employed (works from home) current occupational exposures/hazards: No kareem/advent: [employer] special kareem needs: No travel history: recent (domestic only) seatbelt use: always helmet use: Yes (mixed; not with bicycle; counseled on this) water heater temp set < 120 deg: Yes working smoke detector in home: Yes fire extinguisher in home: Yes carbon monox detector in home: Yes firearms in home: No do you feel safe at home: Yes Smoking Status: Never smoker second hand exposure: No alcohol intake: former (~1-3 drinks on weekends when not ) substance use type: marijuana (edibles; not while /) during the past year weight has: remained stable (prior to ) well-balanced diet: daily or most days daily servings fruits/ve or more times/day caffeine: Yes (occasional decaf coffee; mostly stopped w/ ) Type(s) of exercise: walking Meds Home Medications and Allergies Home Medications Medication Instructions Recorded Confirmed Type calcium carbonate (Tums) 200 mg PO TID PRN 06/12/24 07/12/24 History polyethylene glycol 3350 17 gram 17 g PO DAILY PRN 06/12/24 07/12/24 History oral powder packet (Miralax) vitamin-ferrous sulfate tab PO 06/12/24 07/12/24 History 27 mg iron-folic acid 0.8 mg tablet insulin NPH isoph U-100 human 100 10 unit (0.1 mL) SUBCUT QPM #15 mL 06/16/24 07/19/24 Rx unit/mL (3 mL) subcutaneous pen (Humulin N NPH U-100 Insulin KwikPen) pen needle, diabetic 31 gauge x #100 ea 06/21/24 07/12/24 Rx 1/4 (Comfort EZ Pen [place]) blood-glucose sensor (Dexcom G7 #3 ea 06/30/24 07/12/24 Rx Sensor device) famotidine 20 mg tablet 20 mg PO DAILY #30 tabs 07/12/24 07/19/24 Rx Allergies Allergy/AdvReac Type Severity Reaction Status Date / Time No Known Drug Allergies Allergy Verified 07/19/24 11:49 Review of Systems Review of Systems ROS: Yes All systems reviewed with the patient and are negative except as otherwise documented Objective Labs 07/20/24 06:20 Assessment and Plan Assessment and Plan Assessment and Plan narrative: 34yo G1 at 39w0d d=9wk OSH US presents for scheduled primary section in setting of persistent malpresentation Primary persistent han breech presentation confirmed on arrival CBC, T&S on admission, pending and will follow uterotonics in room for delivery secondary to risk for PPH, mild thrombocytopenia on admission labs without concerns for PIH A2GDM - well controlled with 10u NPH QHS, POCT BG prn postoperatively without continuation of insulin therapy Patient is consented for primary section as well as transfusion of blood products as medically indicated. dispo: to OR, anticipate routine /postoperative care Time-Based Coding :: [TOTAL MINUTES] spent with patient and on the chart (including review of chart, obtaining history, exam, reviewing outside data, placing orders, documenting exam and treatment plan, and counseling patient) on [DATE].
[2024-07-19 11:42] VITALS: BP 120/75
[2024-07-19] MEDS: CITRIC ACID/SODIUM CITRATE 15 ML SOLUTION 30 ML PO (12:21)
[2024-07-19] MEDS: ACETAMINOPHEN 325 MG TABLET 975 MG PO (12:26)
[2024-07-19] MEDS: CEFAZOLIN 2 GM/100 ML PREMIX 100 ML IV (12:45)
--- NOTE | 2024-07-19 12:54 | SUR.OPER ---
Supine on Padded OR bed, head on pillow, safety belt at thigh, arms secured on padded arm boards at <90 degrees abduction. Bump under right buttock. Legs uncrossed with pillow under knees, gel pad to heels, tape over blanket to lower legs.
--- NOTE | 2024-07-19 13:09 | SUR.OPER ---
viable baby boy born at 1309
[2024-07-19] MEDS: TRANEXAMIC ACID 1,000 MG in SODIUM CHLORIDE 0.9% 100 ML 200 MG IV (13:15)
[2024-07-19] MEDS: LACTATED RINGERS 1,000 ML 42 ML IV (13:22)
[2024-07-19 13:56] VITALS: BP 108/68; PULSE 82; RESP 20; TEMP 36.7; O2SAT 98
[2024-07-19 14:01] VITALS: BP 100/66; PULSE 79; RESP 20; TEMP 36.7; O2SAT 97
[2024-07-19 14:06] VITALS: BP 109/70; PULSE 72; RESP 21; TEMP 36.6; O2SAT 97
[2024-07-19] MEDS: KETOROLAC 30 MG/ML VIAL IV ×2 (16:26→22:35)
[2024-07-19] MEDS: ACETAMINOPHEN 325 MG TABLET 650 MG PO (22:34)
[2024-07-20] MEDS: ACETAMINOPHEN 325 MG TABLET 650 MG PO ×4 (05:04→23:43)
[2024-07-20] MEDS: KETOROLAC 30 MG/ML VIAL IV ×2 (05:05→11:07)
[2024-07-20 06:56] LABS: Hemoglobin 10.8 g/dL (12.0-16.0)
--- NOTE | 2024-07-20 09:40 | PM.OBCS.1 ---
Operative Date/Time/Diagnoses Date of procedure: 07/19/24 Time of procedure: 13:00 Pre-op diagnosis: 1) IUP at 39w0d; 2) persistent malpresentation, han breech Post-op diagnosis: other (s/p primary section) Procedure & Clinicians Procedure: primary low transverse section Same procedure as scheduled: Yes Indications: 1) IUP at 39w0d 2) persistent malpresentation, han breech Surgeon: Magalie Nash Click Yes if Unassisted: No Microfilm Technician: Gilda Khan Reason for Microfilm Technician: high risk hemorrhage Anesthesia Type: Spinal Operative Notes Findings: live born male infant in han breech presentation, vigorous normal appearing bilateral adnexae intrabdominal survey negative Closure Type: primary Specimen(s): cord blood Applied: Catheter Estimated Blood Loss (mL): 700 Blood products transfused: none Procedure in detail: Pt was taken to the operating room and transferred to OR table.? The spinal analgesia was placed and dosed to a surgical level per anesthesia.? The patient was placed in the supine position, prepped and draped in a sterile fashion.? Prior to incision the level of anesthesia was rechecked and found to be adequate.? A timeout was once again performed. A pfannensteil incision was made 2cm superior to the pubic symphysis.? This incision was carried down sharply to the level of the rectus fascia.? The fascia was incised sharply with knife and the incision was extended bilaterally and superiorly using nuno scissors. The superior border of the fascia was elevated with two Harshil clamps and bluntly dissected off of the rectus muscles followed by incision of the median raphe with the knife.? Attention was then turned to the inferior border of the fascia which was dissected away from the underlying musculature in a similar manner down to the level of the pubic symphysis.? The rectus muscles were then in the midline and the peritoneum was identified.? The peritoneum was entered bluntly under direct visualization.? The peritoneal opening was then extended manually.? The grinding machine operator?s hand was inserted in the abdomen and the uterus was found to be in a dextro-rotated position. The bladder blade was then inserted. The vesicouterine peritoneum was identified, elevated using DeBakey forceps and incised in the midline using Metzenbaum scissors.? The incision was carried laterally and superiorly bilaterally.? A bladder flap was further developed digitally and the bladder blade was replaced.? Next, a low transverse incision was made in the uterus using the knife.? The incision was extended laterally and superiorly bilaterally bluntly.? The grinding machine operator?s hand was then inserted into the uterus to find an infant in han breech position, back up. The hips were grasped bilaterally and delivered through the hysterotomy under gentle traction in tandem with fundal pressure. The legs were fully extended in pike position and delivery spontaneously with need for splinting with delivery of the thorax to the level of the midscapula. The was wrapped in a sterile blue towel and gently rotated such that the R shoulder was anterior; the RUE was then splinted, flexed and delivered via the hysterotomy. The thorax was then rotated 180 degress and the LUE was delivered in similar fashion. The head delivered spontaneously shortly thereafter and had vigorous cry. The cord was doubly clamped and cut following 60s delay per protocol.? The was then passed to waiting pediatricians.? The placenta was delivered via gentle traction with additional manual extraction as necessary; the placenta was then passed off the field. ? The uterus was exteriorized and the uterine cavity was wiped of all clots and debris.? The bladder blade was reinserted and the hysterotomy incision was repaired with #0 vicryl in a running locked fashion, followed by a second #0 vicryl in an imbricating fashion.? Moderate intermittent uterine atony noted between primary and imbricating layer; resoloved following administration of 10u intrauterine pitocin in tandem with single dose TXA. Tubes, ovaries and adnexae were visualized and noted to be grossly normal in appearance.? The uterus was replaced into the abdomen without difficulty and the hysterotomy was noted to be hemostatic off of tension.? Perclot was placed along the denuded lower uterine segment for further hemostasis prophylaxis. The rectus fascia was closed using #1 vicryl in a running fashion.? The incision was irrigated and hemostasis was achieved using the bovie.? The subcutaneous space was reapproximated using plain gut suture in a running fashion.? The skin was closed using 4-0 monocryl followed by application of steristrips and abdominal compression dressing.? All counts were correct x2.? The pt tolerated the procedure well and without difficulty. Fundal contents were expressed and fundus noted to be firm, level noted prior to patient transfer to PACU in stable condition.? Complications: none [place] Baby 1: Gender: Male Presentation: breech Details: han Placental Delivery Description: Manual Removal Cord Vessel Description: 3 Vessels weight: 8 lb 15 oz Post-operative Condition: stable Disposition: PACU Aftercare: routine postop
--- NOTE | 2024-07-20 09:49 | P.PNOB_ITS ---
Subjective - OB Subjective Patient comments: pain well controlled [place] baby status: nursing well Narrative: 34yo [id number] POD#1 s/p PLTCS for breech presentation. Her PNC was c/b GDMA2. She reports feeling well, pain is slightly more today than yesterday, but tolerable. She has ambulated without dizziness/lightheadedness. She is . Tessa was d/c'd this morning, and she has not voided yet. Date Patient Seen: 07/20/24 Time Patient Seen: 09:51 Exam Vital Signs (past 8 hours): Oxygen Delivery Method Room Air vitals reviewed in OBIX, within normal parameters Const General: comfortable and No acute distress Resp Effort & Inspection: normal respiratory effort and able to speak in complete sentences GI Other: soft, nontender, nondistended, U-2 Skin Other: low transverse incision clean/dry/intact with steri-strips in place Extrem General: normal to inspection and no calf tenderness Objective Labs 07/20/24 06:20 Labs: Laboratory Results - last 24 hr 07/19/24 07/20/24 11:10 06:20 WBC 10.4 RBC 4.06 Hgb 12.0 10.8 L Hct 35.3 L 32.0 L MCV 87.0 MCH 29.5 MCHC 34.0 RDW 13.7 Plt Count 180 Neut % (Auto) 72.0 Lymph % (Auto) 17.6 L [place] % (Auto) 8.4 Eos % (Auto) 1.1 L Baso % (Auto) 0.9 Neut # (Auto) 7500 H Lymph # (Auto) 1800 [place] # (Auto) 900 Eos # (Auto) 100 Baso # (Auto) 100 Blood Type O Positive Antibody Screen Negative Assessment & Plan Assessment and Plan (1) delivery, delivered, current hospitalization: Status: Acute (2) Breech presentation delivered: Status: Acute (3) Insulin controlled gestational diabetes mellitus during : Status: Acute Plan day: 1 plan OB: routine postop care Comments: 34yo [id number] POD#1 s/p PLTCS, doing well in the period. -continue routine care today -plan for d/c tomorrow morning Time-Based Coding :: [20min] spent with patient and on the chart (including review of chart, obtaining history, exam, reviewing outside data, placing orders, documenting exam and treatment plan, and counseling patient) on [07/20/24].
[2024-07-20] MEDS: PRENATAL VIT,CALC/IRON/FOLIC 1 TABLET 1 TAB PO (09:53)
[2024-07-20] MEDS: OXYCODONE IR 5 MG TABLET PO (09:53)
[2024-07-20] MEDS: OXYCODONE IR 10 MG TABLET PO ×3 (14:02→22:45)
[2024-07-20] MEDS: IBUPROFEN 600 MG TABLET PO ×2 (17:37→23:42)
[2024-07-21] MEDS: OXYCODONE IR 10 MG TABLET PO (03:05)
[2024-07-21] MEDS: IBUPROFEN 600 MG TABLET PO (05:48)
[2024-07-21] MEDS: ACETAMINOPHEN 325 MG TABLET 650 MG PO (05:49)
--- NOTE | 2024-07-21 09:11 | PM.OBDS.1 ---
Discharge Providers Provider Date of admission: 07/19/24 10:33 Discharge Date: 07/21/24 Primary care physician: Doctor Aby MD Consults: 07/19/24 14:11 Consult to Credit Assessment Analyst Routine Comment: 07/19/24 17:51 Consult to Credit Assessment Analyst Routine Comment: Discharge provider: Allyson Fleming DO Summary Hospital Course Date Patient Seen: 07/21/24 Time Patient Seen: 09:11 Diagnoses: Term davis gestation at 39+0wks Breech presentation Gestational diabetes, class A2 Hospital Course: 34yo [id number] admitted at 39+0wks for planned primary due to breech presentation. Her delivery was uncomplicated, and productive of a viable male infant. Her course was unremarkable. On post-op day #2, she was ambulating, tolerating regular diet, voiding spontaneously with minimal lochia. Her pain was well controlled with oral medications, thus she was discharged to home on post-op day #2. Peripartum Data Delivery Method: Section Procedures: External monitoring Neuraxial anesthesia Primary section complications: none Discharge Diagnosis (1) delivery, delivered, current hospitalization: Status: Acute (2) Breech presentation delivered: Status: Acute (3) Insulin controlled gestational diabetes mellitus during : Status: Acute Status at Discharge Cognitive/behavioral status at discharge: oriented Functional status at discharge: independent ambulation Overall status at discharge: patient is progressing back to baseline Time Spent with Patient Time attestation: Total time spent providing and/or coordinating discharge services: Time spent: Less than 30 minutes Objective Labs 07/20/24 06:20 Exam Vital Signs (past 8 hours): Oxygen Delivery Method Room Air vitals reviewed in OBIX, within normal parameters Const General: cooperative, healthy appearing, comfortable and No acute distress Resp Effort & Inspection: normal respiratory effort GI Inspection: normal to inspection Other: fundus firm and nontender at U-2 Skin General: no rashes or lesions noted Other: low transverse incision clean/dry/intact with steri-strips in place Neuro General: patient alert and patient awake Extrem General: normal to inspection, no pedal edema and no calf tenderness Psych Mood: congruent mood Affect: normal affect Discharge Plan Discharge Plan Patient Disposition: Home Provider Discharge Comment: Take ibuprofen 600mg every 6hrs and acetaminophen 650mg every 6hrs for pain. Use oxycodone 5mg every 4hrs as needed for breakthrough pain. Avoid lifting greater than 20lbs for at least 6 weeks. Avoid placing anything in the vagina for 6 weeks. Discharge orders & Medications Prescriptions: New oxycodone 5 mg Tablet 5 mg PO Q4HR PRN (Reason: Pain, Moderate (4-6)) Qty: 10 0RF Continued vit-ferrous sulfat-FA 27 mg iron- 0.8 mg tablet PO polyethylene glycol 3350 [Miralax] 17 gram powder in packet 17 g PO DAILY PRN Discontinued Humulin N NPH Insulin KwikPen 100 unit/mL (3 mL) insulin pen 10 unit SUBCUT QPM Qty: 15 0RF Rx Instructions: inject 10 units subcutaneously at bedtime famotidine 20 mg tablet 20 mg PO DAILY Qty: 30 1RF calcium carbonate [Tums] 200 mg calcium (500 mg) tablet,chewable 200 mg PO TID PRN No Action (DME) pen needle, diabetic [Comfort EZ Pen Arco] 31 gauge x 1/4 needle See Rx Instructions .Route Qty: 100 0RF Rx Instructions: To use with insulin pen QHS (DME) Dexcom G7 Sensor Device See Rx Instructions .Route Qty: 3 0RF Rx Instructions: use to check blood sugars and change out every 10 days Follow up/Referrals: Magalie Nash MD [Physician] - Diet/Activity/Treatments Diet: Diet as Tolerated Activity: As tolerated. Skin/Wound/Dressing Care Report to your healthcare provider any signs of infection, such as:: chills, fever, increased pain, unusual drainage and unusual redness Dressing: Steri-strips will fall off after 1 week. You may shower normally with them in place. Visit Report/Discharge Packet Instructions: DI for , DI for Prescription Opioid Use Stand Alone Forms: Discharge: Care, Patient Portal/API, Stroke Signs & Symptoms Discharge Data Primary Care Provider: Miscellaneous,Doctor
== END 2024-07-21 12:25 | disposition home or self-care (01) | DRG 788 ==
PROVIDERS: Admitting Provider Obstetrics & Gynecology; Referring Provider Obstetrics & Gynecology; Visit Provider Obstetrics & Gynecology
PROC: (CPT 59514; principal; 2024-07-19 12:30)
DX: O32.1XX0 Maternal care for breech presentation, not applicable or unspecified (principal); O24.424 Gestational diabetes mellitus in childbirth, insulin controlled; Z3A.39 39 weeks gestation of pregnancy; Z37.0 Single live birth; Z67.40 Type O blood, Rh positive
CPT/HCPCS: 36415; 59050; 85014; 85018; 85025; 86850; 86900; 86901; J0690; J1100; J1885; J2274; J2405; J2590; J2704

== ENCOUNTER 2024-08-30 13:57 | Emergency (ER) | payer OTHER, SELFPAY ==
[2024-08-30] VITALS (11 sets, daily range): BP systolic 113–117; BP diastolic 70–83; PULSE 101–121; RESP 18–36; TEMP 37.9–39.6; O2SAT 96–100; BMI 25.3
[2024-08-30] MEDS: ACETAMINOPHEN 325 MG TABLET 975 MG PO (14:28)
[2024-08-30 14:59] LABS: Add Manual Diff / Slide Review NO; Basophils Absolute Auto 100 /uL (0-100); Basophils Percent Auto 0.4 % (0-2); Eosinophils Absolute Auto 100 /uL (0-450); Eosinophils Percent Auto 0.6 % (2-4); Hematocrit 39.6 % (36-46); Hemoglobin 13.1 g/dL (12.0-16.0); Lymphocytes Absolute Auto 1100 /uL (1100-4500); Lymphocytes Percent Auto 8.1 % (25-40); Mean Corpuscular HGB Conc 33.2 % (30-36); Mean Corpuscular Hemoglobin 28.4 PG (26-34); Mean Corpuscular Volume 85.6 fL (80-100); Monocytes Absolute Auto 1100 /uL (0-900); Monocytes Percent Auto 8.4 % (3-14); Neutrophils Absolute Auto 11100 /uL (1500-7000); Neutrophils Percent Auto 82.5 % (50-75); Platelet Count 226 X10^3/uL (150-400); Red Blood Cell Count 4.63 X10^6/uL (4.0-5.2); Red Cell Distribution Width 13.6 % (11.6-14.8); White Blood Cell Count 13.5 X10^3/uL (4.5-11.0)
--- NOTE | 2024-08-30 15:05 | ED.SKABFB ---
HPI - Skin/Abscess/Foreign Bdy General Chief complaint: Skin/Abscess/Foreign Body Stated complaint: mastitis Time Seen by Provider: 08/30/24 14:53 Source: patient Mode of arrival: Wheelchair Limitations: no limitations History of Present Illness HPI narrative: Patient is a 34-year-old female 6 weeks presenting to the emergency department from her OBGYN office for possible abscess versus left breast mastitis. States that on Wednesday she started noticed some redness irritation. Also been noticed some chills. Went to her 6 week normal follow-up and was instructed to come into the ED due to the fact that she was febrile. Patient has been pumping appropriately. She is not complaining of any other symptoms at this time. This is her 1st . Related Data Home Medications Medication Instructions Recorded Confirmed polyethylene glycol 3350 17 gram 17 g PO DAILY PRN 06/12/24 08/30/24 oral powder packet (Miralax) vitamin-ferrous sulfate tab PO 06/12/24 08/30/24 27 mg iron-folic acid 0.8 mg tablet Previous Rx's Medication Instructions Recorded blood-glucose sensor (Dexcom G7 #3 ea 06/30/24 Sensor device) oxycodone 5 mg tablet 5 mg PO Q4HR PRN Pain, Moderate 07/21/24 (4-6) #10 tabs dicloxacillin 500 mg capsule 500 mg PO Q6H 10 days #40 caps 08/30/24 dicloxacillin 500 mg capsule 500 mg PO QID 7 days #28 caps 08/30/24 oxycodone-acetaminophen 2.5 mg-325 1 tab PO Q8H PRN pain #5 tabs 08/30/24 mg tablet (Percocet) Allergies Allergy/AdvReac Type Severity Reaction Status Date / Time No Known Drug Allergies Allergy Verified 08/30/24 13:24 Review of Systems Review of Systems Narrative: General: Positive, fever, chills, denies weight loss HEENT: Denies headache, eye drainage, eye irritation, head trauma, sore throat, voice change Cardiovascular: Denies any chest pain, palpitations, shortness of breath, tachycardia Respiratory: Denies any shortness of breath, cough, wheeze, stridor GI/: Denies any abdominal pain, nausea, vomiting, diarrhea, bright red blood per rectum, melanotic stools, urinary frequency, urinary retention, dysuria, hematuria MSK: Denies any joint pain, muscle pains, swelling Skin: Left breast redness, tenderness Neuro: Denies any headache, lightheadedness, dizziness, fainting, weakness Psych: Denies SI/HI Patient History Medical History (Updated 08/30/24 @ 16:29 by Davis Holman DO) Mastitis associated with History of gestational diabetes delivery, delivered, current hospitalization Encounter for supervision of normal first , unspecified trimester Gestational diabetes mellitus (GDM) affecting Maternal excessive weight gain Insulin controlled gestational diabetes mellitus during Thyroid dysfunction Anxiety Surgical History (Updated 06/12/24 @ 08:14 by Cristel Casillas RN) [place] teeth extracted History of foot surgery (~2018) Family History (Updated 06/12/24 @ 08:17 by Cristel Casillas RN) Mother Hypothyroidism Pre-diabetes Grandmother Diabetes mellitus Father Spinal stenosis Recovering alcoholic Grandfather Heart disease Sister Gilbert's disease Brother Bipolar disorder Social History marital status: number of children: 0 household members: significant other lives independently: Yes caregiver/support person: No housing: house pets and animals: Yes (cats; aware of precautions) education level: college (bachelor's degree) occupational status: employed (works from home) current occupational exposures/hazards: No kareem/pentecostal: Shinto special kareem needs: No travel history: recent (domestic only) seatbelt use: always helmet use: Yes (mixed; not with bicycle; counseled on this) water heater temp set < 120 deg: Yes working smoke detector in home: Yes fire extinguisher in home: Yes carbon monox detector in home: Yes firearms in home: No do you feel safe at home: Yes Smoking Status: Never smoker second hand exposure: No alcohol intake: former (~1-3 drinks on weekends when not ) substance use type: marijuana (edibles; not while /) during the past year weight has: remained stable (prior to ) well-balanced diet: daily or most days daily servings fruits/ve or more times/day caffeine: Yes (occasional decaf coffee; mostly stopped w/ ) Type(s) of exercise: walking Smoking Status: Never smoker alcohol intake frequency: holidays/special occasions only Substance Use Type: does not use Exam Narrative Exam Narrative: General: Cooperative, comfortable, well-developed, not in acute distress HEENT: Normocephalic, atraumatic, PERRLA, normal sclera, eyelids normal, Neck: Active full range of motion, atraumatic Chest: Normal to inspection, negative crepitus, no overlying erythema ecchymosis Respiratory: Normal respiratory effort, not in acute respiratory distress, clear to auscultation bilaterally negative cough, wheeze, tachypnea, rhonchi, rales Cardiology: Regular rate rhythm negative gallop, murmur, rubs GI/: Normal to inspection, soft, nonrigid, no tenderness to palpation, exam deferred MSK: Full range of active range of motion of all 4 extremities, atraumatic Skin: Redness noted to the left breast, no obvious abscess on palpation, mild tenderness to palpation Neuro: Alert awake oriented x3, moves all 4 extremities spontaneously, cranial nerves intact, able to answer all questions appropriately follows commands appropriately Psych: Cooperative, negative suicidal or homicidal ideations Initial Vital Signs Initial Vital Signs: Vital Signs Temperature 102.7 F H 08/30/24 14:02 Pulse Rate 118 H 08/30/24 14:02 Respiratory Rate 18 08/30/24 14:02 Blood Pressure 113/83 08/30/24 14:02 Pulse Oximetry 100 08/30/24 14:02 Oxygen Delivery Method Room Air 08/30/24 14:02 Course Orders Ordered: ED Orders 08/30/24 14:25 BMP [Basic Metabolic Panel] Stat CBC Auto Diff [Complete Blood Count AUTO DIFF] Stat Lactate (Lactic Acid) Stat 08/30/24 15:10 US breast LT limited Stat 08/30/24 16:03 Blood Culture Stat Discontinued Medications Acetaminophen (Acetaminophen 325 Mg Tablet) 975 mg PO NOW ONE Stop: 08/30/24 14:18 Last Admin: 08/30/24 14:28 Dose: 975 mg Documented By: ARY Sodium Chloride (Normal Saline 0.9%) 1,000 mls @ 1,000 mls/hr IV BOLUS ONE Stop: 08/30/24 15:53 Last Infusion: 08/30/24 16:34 Dose: Infused Documented By: Admin: 08/30/24 15:07 Dose: 1,000 mls/hr Documented By: CHUCK Ibuprofen (Ibuprofen 400 Mg Tablet) 800 mg PO NOW ONE Stop: 08/30/24 15:23 Last Admin: 08/30/24 15:28 Dose: 800 mg Documented By: CHUCK Vital Signs Vital signs: Vital Signs - 8 hr 08/30/24 14:02 08/30/24 14:13 08/30/24 14:30 Temperature 102.7 F H Pulse Rate 118 H 121 H 118 H Respiratory Rate 18 Blood Pressure 113/83 Pulse Oximetry 100 99 98 Oxygen Delivery Method Room Air 08/30/24 15:00 08/30/24 15:21 08/30/24 15:21 Temperature 103.2 F H 103.2 F H Pulse Rate 119 H Respiratory Rate 20 Blood Pressure Pulse Oximetry 97 Oxygen Delivery Method 08/30/24 15:28 08/30/24 15:30 08/30/24 15:54 Temperature 103.2 F H Pulse Rate 101 H Respiratory Rate 31 H Blood Pressure 117/70 Pulse Oximetry 97 Oxygen Delivery Method 08/30/24 15:54 08/30/24 15:58 08/30/24 16:00 Temperature 102.9 F H Pulse Rate 113 H 117 H Respiratory Rate 28 H 29 H Blood Pressure Pulse Oximetry 98 99 Oxygen Delivery Method 08/30/24 16:30 Temperature 100.3 F H Pulse Rate 114 H Respiratory Rate 36 H Blood Pressure Pulse Oximetry 96 Oxygen Delivery Method MDM - Skin/Abscess/Foreign Bdy Differential Diagnosis Differential diagnosis: Likely abscess of skin or subcutaneous tissue, cellulitis and other (Mastitis) Lab Data 08/30/24 14:25 08/30/24 14:25 Labs: Lab Results 08/30/24 Range/Units 14:25 WBC 13.5 H (4.5-11.0) X10^3/uL RBC 4.63 (4.0-5.2) X10^6/uL Hgb 13.1 (12.0-16.0) g/dL Hct 39.6 (36-46) % MCV 85.6 (80-100) fL MCH 28.4 (26-34) PG MCHC 33.2 (30-36) % RDW 13.6 (11.6-14.8) % Plt Count 226 (150-400) X10^3/uL Neut % (Auto) 82.5 H (50-75) % Lymph % (Auto) 8.1 L (25-40) % [place] % (Auto) 8.4 (3-14) % Eos % (Auto) 0.6 L (2-4) % Baso % (Auto) 0.4 (0-2) % Neut # (Auto) 22467 H (8190-2631) /uL Lymph # (Auto) 1100 (0909-2969) /uL [place] # (Auto) 1100 H (0-900) /uL Eos # (Auto) 100 (0-450) /uL Baso # (Auto) 100 (0-100) /uL Sodium 136 L (137-145) mmol/L Potassium 3.9 (3.4-5.1) mmol/L Chloride 100 (98-107) mmol/L Carbon Dioxide 24 (22-32) mmol/L BUN 15 (7-17) mg/dL Creatinine 0.90 (0.52-1.04) mg/dL Estimated GFR > 60 (>60) mL/min BUN/Creatinine Ratio 16.7 (6-22) Glucose 91 (70-100) mg/dL Lactate 1.1 (0.7-2.1) mmol/L Calcium 9.8 (8.4-10.2) mg/dL Imaging Data Ultrasound breast: Radiologist's Impression: [place] [address] Ultrasound Report Signed Patient: Jacki Subramanian MR#: [id number] : 1990 Acct:[id number] Age/Sex: 34 / F Date of Service: 08/30/24 Loc: ED Accession Number: [id number] Procedure: US breast LT limited Ordering Provider: Davis Holman D.O. ULTRASOUND OF LEFT BREAST: 08/30/2024 CLINICAL: Palpable right breast two lumps and focal pain with nipple blisters. 6 weeks post-. . No prior exams were available for comparison. Color flow and real-time ultrasound of the left breast were performed. Alcantara scale images of the real-time examination were reviewed. No focal mass or fluid collections. There is mildly increased vascularity of the breast tissue involving the upper left breast between the 11 o'clock to 1 o'clock position between 7-10 cm from the nipple. No nipple abnormalities. No significant skin thickening. IMPRESSION: PROBABLY BENIGN Findings suggestive of mild mastitis of the upper aspect of the left breast. No suspicious mass or drainable fluid collections. Findings are probably benign. Recommend clinical treatment of symptoms and return in approximately 1 month after completion of therapy for follow up left breast ultrasound to document resolution of findings. Additionally, recommend ordering a follow on bilateral diagnostic mammogram to be performed only if any sonographic abnormalities are seen at that time. [facility] Narrative Medical decision making narrative: Patient is a 34-year-old female 6 weeks presenting for left breast pain swelling redness from her OBGYN office. Started approximately 3 days ago. Had been endorsing some mild chills and was noted to be febrile today. Patient had ultrasound performed here that did not show a abscess, on exam patient with mastitis, does have slightly elevated leukocytosis of 13.5 however patient not toxic appearing. She has been able to pump multiple times here in the emergency department. She defervesced here after administration of medication. Risks and benefits were discussed with the patient in regards to trial of oral antibiotics or admission with IV antibiotics, she states that she would rather try oral antibiotics and be discharged home with outpatient follow up. I have given her strict return precautions and told her to follow up with her OBGYN. She verbalized understanding of this and agrees to being discharged home with outpatient follow up Discharge Plan Departure Patient Disposition: Home Clinical Impression: Mastitis Activity Restrictions/Additional Instructions: Please follow up with your OBGYn and primar care doctor Prescriptions: New dicloxacillin 500 mg capsule 500 mg PO Q6H 10 Days Qty: 40 0RF No Action (DME) Dexcom G7 Sensor Device See Rx Instructions .Route Qty: 3 0RF Rx Instructions: use to check blood sugars and change out every 10 days vit-ferrous sulfat-FA 27 mg iron- 0.8 mg tablet PO polyethylene glycol 3350 [Miralax] 17 gram powder in packet 17 g PO DAILY PRN dicloxacillin 500 mg capsule 500 mg PO QID 7 Days Qty: 28 0RF oxycodone-acetaminophen [Percocet] 2.5-325 mg tablet 1 tab PO Q8H PRN (Reason: pain) Qty: 5 0RF oxycodone 5 mg Tablet 5 mg PO Q4HR PRN (Reason: Pain, Moderate (4-6)) Qty: 10 0RF Referrals: Miscellaneous,Doctor, [Primary Care Provider] - Stand Alone Forms: Patient Portal/API
[2024-08-30] MEDS: SODIUM CHLORIDE 0.9% 1,000 ML 1000 ML IV (15:07)
--- NOTE | 2024-08-30 15:10 | DI.US.S_ITS ---
ULTRASOUND OF LEFT BREAST: 08/30/2024 CLINICAL: Palpable right breast two lumps and focal pain with nipple blisters. 6 weeks post-. . No prior exams were available for comparison. Color flow and real-time ultrasound of the left breast were performed. Alcantara scale images of the real-time examination were reviewed. No focal mass or fluid collections. There is mildly increased vascularity of the breast tissue involving the upper left breast between the 11 o'clock to 1 o'clock position between 7-10 cm from the nipple. No nipple abnormalities. No significant skin thickening. IMPRESSION: PROBABLY BENIGN Findings suggestive of mild mastitis of the upper aspect of the left breast. No suspicious mass or drainable fluid collections. Findings are probably benign. Recommend clinical treatment of symptoms and return in approximately 1 month after completion of therapy for follow up left breast ultrasound to document resolution of findings. Additionally, recommend ordering a follow on bilateral diagnostic mammogram to be performed only if any sonographic abnormalities are seen at that time. This exam was interpreted at Station ID: [id number]. Electronically Signed By: Je Valdovinos M.D. at/:08/30/2024 15:53:17 letter sent: Followup Recommended ACR BI-RADS Category 3: Probably Benign
[2024-08-30 15:12] LABS: BUN Creatinine Ratio 16.7 (6-22); Blood Urea Nitrogen 15 mg/dL (7-17); Calcium 9.8 mg/dL (8.4-10.2); Carbon Dioxide 24 mmol/L (22-32); Chloride 100 mmol/L (98-107); Estimated Glomerular Filt Rate > 60 mL/min (>60); Glucose 91 mg/dL (70-100); HEMOLYSIS < 15 (0-50); Potassium 3.9 mmol/L (3.4-5.1); Sodium 136 mmol/L (137-145)
[2024-08-30 15:24] LABS: Lactate (Lactic Acid) 1.1 mmol/L (0.7-2.1)
[2024-08-30] MEDS: IBUPROFEN 400 MG TABLET 800 MG PO (15:28)
--- NOTE | 2024-08-30 16:01 | PC.NURSE ---
This RN informed provider of patient still elevated temperature of 102.9 and no new orders at this time.
== END 2024-08-30 16:44 | disposition home or self-care (01) ==
PROVIDERS: Emergency Provider Student in an Organized Health Care Education/Training Program
DX: N61.0 Mastitis without abscess (principal)
CPT/HCPCS: 36415; 76642; 80048; 83605; 85025; 87040; 96360; 99284

== ENCOUNTER → 2024-10-05 10:55 | Outpatient (CLI) | payer OTHER, SELFPAY ==
--- NOTE | 2024-10-05 10:56 | DI.US.S_ITS ---
LIMITED ULTRASOUND OF LEFT BREAST: 10/05/2024 CLINICAL: Follow-up mild mastitis (completed 10-day antibiotic since ER visit). 3 mos post , . Comparison is made to exam dated: 08/30/2024 [facility]. Real-time ultrasound of the left breast 9-3 o'clock region was performed. Alcantara scale images of the real-time examination were reviewed. Compared to prior ultrasound 08/30/2024, there is decreased hyperemia seen within the breast tissue in the area of prior clinical concern from 9 to 3 o'clock at a distance of 6 cm from the nipple. Additionally, no sonographic abnormality is seen at 6 and 12 o'clock in the retroareolar region. No organized fluid collection. IMPRESSION: NEGATIVE No sonographic abnormality in the areas of clinical concern consistent resolving symptoms of mastitis following antibiotic treatment. No sonographic evidence of malignancy. Clinical follow-up is recommended, and further management of palpable abnormalities or other focal signs or symptoms should be based on the results of clinical evaluation. If palpable abnormality or other concerning symptom persists or progresses, further clinical evaluation should be considered. Recommend routine screening mammogram starting at age 40. Findings and recommendations were conveyed to the patient during today's evaluation. This exam was interpreted at Station ID: [id number]. Electronically Signed By: Gwen Blum M.D., Ph.D. eb/:10/16/2024 15:37:29 letter sent: Clinical Evaluation ACR BI-RADS Category 1: Negative
== END ==
PROVIDERS: Referring Provider Obstetrics & Gynecology; Visit Provider Obstetrics & Gynecology
DX: R92.8 Other abnormal and inconclusive findings on diagnostic imaging of breast (principal); Z39.1 Encounter for care and examination of lactating mother; N61.0 Mastitis without abscess
CPT/HCPCS: 76642